=== PATIENT | male | born 1995 | race Caucasian/White ===

== ENCOUNTER 2021-05-24 22:15 | Emergency (ER) | payer SELFPAY | END 2021-05-25 03:13 | disposition home or self-care (01) | LOC: FER 22:15 | DX: S51.812A Laceration without foreign body of left forearm, initial encounter (principal); Z88.6 Allergy status to analgesic agent; X78.8XXA Intentional self-harm by other sharp object, initial encounter; Y92.009 Unspecified place in unspecified non-institutional (private) residence as the place of occurrence of the external cause ==